=== PATIENT | male | born 1960 | race Hispanic/Latino ===

== ENCOUNTER 2021-02-20 16:06 | Emergency (ER) | payer OTHER ==
[2021-02-20] MEDS ORDERED: Lidocaine 1% w/Epinephrine 1:100K 20 ML VIAL ONE (16:33)
[2021-02-20] MEDS ORDERED: Boostrix 0.5 ML (Tdap) VIAL ONE (17:17)
== END 2021-02-20 18:11 | disposition home or self-care (01) ==
LOC: ERS 16:06
DX: S01.01XA Laceration without foreign body of scalp, initial encounter (principal); S60.211A Contusion of right wrist, initial encounter; Z23 Encounter for immunization; W01.198A Fall on same level from slipping, tripping and stumbling with subsequent striking against other object, initial encounter
CPT/HCPCS: 12002; 70450; 90471; 90715